=== PATIENT | female | born 1945 | race Caucasian/White ===

== ENCOUNTER 2024-06-21 11:15 | Emergency (ER) | payer OTHER, MEDICARE ==
[~2024-06-21] VITALS: Ht 165.1 cm; Wt 67.1 kg
[2024-06-21 11:22] VITALS: BP_SYST 172; PULSE 74; RESP 17; TEMP 97.7; O2SAT 96
[2024-06-21 11:52] LABS: BILIRUBIN,URINE NEGATIVE (NEGATIVE); BLOOD, URINE NEGATIVE (NEGATIVE); CLARITY/URINE CLEAR (CLEAR); COLOR,URINE YELLOW (YELLOW); GLUCOSE,URINE NEGATIVE (NEGATIVE); KETONES,URINE NEGATIVE (NEGATIVE); LEUKOCYTE ESTERASE ,URINE NEGATIVE (NEGATIVE); NITRITE, URINE NEGATIVE (NEGATIVE); PROTEIN URINE NEGATIVE (NEGATIVE); UROBILINOGEN,URINE 0.2 (0.2-1.0)
[2024-06-21 12:03] LABS: BASOPHILS % (AUTO) 0.7 % (0.0-2.0); EOSINOPHILS # (AUTO) 0.2 K/uL (0.0-0.4); EOSINOPHILS % (AUTO) 3.9 % (0.0-4.0); HEMATOCRIT 37.7 % (36-48); HEMOGLOBIN 12.6 g/dL (12.0-16.0); LYMPHOCYTES # (AUTO) 1.1 K/uL (1.0-5.5); LYMPHOCYTES % (AUTO) 19.6 % (20.5-51.5); MEAN CORPUSCULAR HEMOGLOBIN 31 pg (27-31); MEAN CORPUSCULAR HGB CONC 33 % (32-36); MEAN CORPUSCULAR VOLUME 93 fL (79.0-98.0); MONOCYTES # (AUTO) 0.5 K/uL (0.0-1.0); MONOCYTES % (AUTO) 8.2 % (1.7-9.3); NEUTROPHILS % (AUTO) 67.6 % (40.0-70.0); PLATELET COUNT (AUTO) 228 K/uL (130-430); RED BLOOD CELL COUNT(AUTO) 4.06 MIL/uL (4.2-6.2); RED CELL DISTRIBUTION WIDTH 13.5 % (9.0-15.0); WHITE BLOOD COUNT (AUTO) 5.9 K/uL (4.8-10.8)
[2024-06-21] MEDS: HYDROcodone/ACETAMIN 5-325 MG TAB (NORCO/ VICODIN) PO ONE (12:06)
[2024-06-21 12:33] LABS: ALANINE AMINOTRANSFERASE 29 U/L (12-78); ALBUMIN 3.7 g/dL (3.4-4.8); AMYLASE 47 U/L (0-100); ANION GAP 9 (5-15); ASPARTATE AMINOTRANSFERASE 21 U/L (10-37); BILIRUBIN,DIRECT 0.1 mg/dL (0.0-0.3); CALCIUM 8.9 mg/dL (8.4-11.0); CARBON DIOXIDE 26 mmol/L (23-29); CHLORIDE 105 mmol/L (98-107); CREATININE 0.79 mg/dL (0.55-1.30); GLUCOSE 120 mg/dL (74-106); LIPASE 31 U/L (16-77); POTASSIUM 4.1 mmol/L (3.5-5.1); SODIUM SERUM 140 mmol/L (136-145); TOTAL BILIRUBIN 0.5 mg/dL (0.0-1.0); TOTAL PROTEIN, SERUM 6.7 g/dL (6.4-8.3); UREA NITROGEN, BLOOD 18 mg/dL (8-21)
[2024-06-21 12:45] LABS: INR 0.9 (0.8-1.2); PROTHROMBIN TIME 9.9 SECS (9.5-12.5)
[2024-06-21] MEDS ORDERED: TRAM50TA2 PO (13:58)
[2024-06-21] MEDS ORDERED: IBUP-1969 PO (13:58)
[2024-06-21] MEDS: MORPHINE 4 MG INJ. 4 MG/ML VIAL IM ONE (14:41)
[2024-06-21 15:06] VITALS: BP_SYST 145; PULSE 78; RESP 16; O2SAT 99
== END 2024-06-21 15:04 | disposition home or self-care (01) ==
LOC: SED 11:15
DX: N32.89 Other specified disorders of bladder (principal); R10.9 Unspecified abdominal pain; Z79.899 Other long term (current) drug therapy; Z79.2 Long term (current) use of antibiotics
CPT/HCPCS: 99285; 74176; 80076; 80048; 81001; 82150; 83690; 85025; 85610; 85730; 84484; 36415; 96372; 83605; 81003; 82397; J2270

== ENCOUNTER 2024-06-24 08:36 | Emergency (ER) | payer OTHER, MEDICARE ==
[~2024-06-24] VITALS: Ht 165.1 cm; Wt 65.3 kg
[~2024-06-24 08:36] MED LIST: IBUP-1969 PO; TRAM50TA2 PO
[2024-06-24 08:42] VITALS: BP_SYST 146; PULSE 71; RESP 22; TEMP 98.1; O2SAT 98
[2024-06-24 09:36] LABS: BASOPHILS % (AUTO) 0.3 % (0.0-2.0); EOSINOPHILS # (AUTO) 0.1 K/uL (0.0-0.4); EOSINOPHILS % (AUTO) 1.1 % (0.0-4.0); HEMATOCRIT 35.3 % (36-48); HEMOGLOBIN 11.6 g/dL (12.0-16.0); LYMPHOCYTES # (AUTO) 0.7 K/uL (1.0-5.5); LYMPHOCYTES % (AUTO) 8.3 % (20.5-51.5); MEAN CORPUSCULAR HEMOGLOBIN 31 pg (27-31); MEAN CORPUSCULAR HGB CONC 33 % (32-36); MEAN CORPUSCULAR VOLUME 94 fL (79.0-98.0); MONOCYTES # (AUTO) 0.7 K/uL (0.0-1.0); MONOCYTES % (AUTO) 8.3 % (1.7-9.3); NEUTROPHILS # (AUTO) 7.2 K/uL (1.8-7.7); PLATELET COUNT (AUTO) 203 K/uL (130-430); RED BLOOD CELL COUNT(AUTO) 3.77 MIL/uL (4.2-6.2); WHITE BLOOD COUNT (AUTO) 8.8 K/uL (4.8-10.8)
[2024-06-24] MEDS: MORPHINE 4 MG INJ. 4 MG/ML VIAL IVP ONE (09:58)
[2024-06-24] MEDS: ONDANSETRON HCL 4 MG/2 ML VIAL IVP ONE (09:58)
[2024-06-24 10:00] LABS: ALANINE AMINOTRANSFERASE 19 U/L (12-78); ALBUMIN 3.5 g/dL (3.4-4.8); ANION GAP 9 (5-15); ASPARTATE AMINOTRANSFERASE 14 U/L (10-37); BILIRUBIN,DIRECT 0.2 mg/dL (0.0-0.3); CALCIUM 9.1 mg/dL (8.4-11.0); CARBON DIOXIDE 27 mmol/L (23-29); CHLORIDE 103 mmol/L (98-107); CREATININE 0.74 mg/dL (0.55-1.30); GLUCOSE 95 mg/dL (74-106); LIPASE 18 U/L (16-77); POTASSIUM 3.3 mmol/L (3.5-5.1); SODIUM SERUM 139 mmol/L (136-145); TOTAL BILIRUBIN 0.7 mg/dL (0.0-1.0); TOTAL PROTEIN, SERUM 6.6 g/dL (6.4-8.3); UREA NITROGEN, BLOOD 7 mg/dL (8-21)
[2024-06-24 11:03] LABS: BILIRUBIN,URINE NEGATIVE (NEGATIVE); BLOOD, URINE NEGATIVE (NEGATIVE); COLOR,URINE YELLOW (YELLOW); GLUCOSE,URINE NEGATIVE (NEGATIVE); KETONES,URINE 1+ (NEGATIVE); LEUKOCYTE ESTERASE ,URINE 1+ (NEGATIVE); NITRITE, URINE NEGATIVE (NEGATIVE); PROTEIN URINE NEGATIVE (NEGATIVE); UROBILINOGEN,URINE 0.2 (0.2-1.0)
[2024-06-24 11:08] LABS: CLARITY/URINE SLIGHTLY HAZY (CLEAR)
[2024-06-24 11:12] LABS: BACTERIA,URINE FEW /HPF (None Seen); RBC,URINE NONE SEEN /HPF (0-3)
[2024-06-24] MEDS ORDERED: NITR-85 PO (11:22)
[2024-06-24] MEDS ORDERED: ONDA-8 TL (11:22)
[2024-06-24] MEDS ORDERED: DOCU-144 PO (11:22)
[2024-06-24 11:50] VITALS: BP_SYST 132; PULSE 83; RESP 18; TEMP 98.1; O2SAT 98
== END 2024-06-24 11:50 | disposition home or self-care (01) ==
LOC: SED 08:36
DX: N39.0 Urinary tract infection, site not specified (principal); R10.30 Lower abdominal pain, unspecified; N94.89 Other specified conditions associated with female genital organs and menstrual cycle; R11.2 Nausea with vomiting, unspecified; I10 Essential (primary) hypertension; Z79.899 Other long term (current) drug therapy
CPT/HCPCS: 99285; 74176; 96374; 96375; 80076; 80048; 81001; 83690; 85025; 87086; 36415; J2405; J2270; 81000; 81015